=== PATIENT | female | born 1975 | race Caucasian/White ===

== ENCOUNTER → 2021-06-25 10:03 | Outpatient (CLI) | payer OTHER, SELFPAY ==
[2021-06-25 18:40] LABS: Cholesterol 169 mg/dL (140-199); HDL Cholesterol 44 mg/dL (40-60); LDL Cholesterol Calculated 112 mg/dL (<100); Triglycerides 63 mg/dL (35-150)
[2021-06-25 19:11] LABS: TSH w/ Reflex to FT4 0.96 uIU/mL (0.47-4.68)
== END ==
PROVIDERS: PCP Nurse Practitioner Family; Visit Provider Nurse Practitioner Family
DX: E03.9 Hypothyroidism, unspecified (principal); E78.2 Mixed hyperlipidemia
CPT/HCPCS: 80061; 84443

== ENCOUNTER → 2021-08-05 07:10 | Outpatient (CLI) | payer OTHER, SELFPAY ==
[2021-08-05 21:20] LABS: COVID19 - ORCAS (NP or Nasal) Negative (Negative)
== END ==
PROVIDERS: PCP Nurse Practitioner Family; Visit Provider Physician Assistant
DX: Z20.822 Contact with and (suspected) exposure to COVID-19 (principal)
CPT/HCPCS: U0003